=== PATIENT | male | born 1970 | race Caucasian/White ===

== ENCOUNTER 2025-05-25 12:57 | Emergency (ER) | payer BC, SELFPAY ==
[2025-05-25 13:00] VITALS: BP 154/115
[2025-05-25 13:46] VITALS: BP 153/100
[2025-05-25] MEDS: ADACEL 0.5 ML IM (13:55)
--- NOTE | 2025-05-25 13:55 | ED.GENMED ---
History of Present Illness
General
Chief Complaint: Head Injury
Source: patient
Time Seen by Provider: 05/25/25 13:44
History of Present Illness
History of Present Illness:
55-year-old male presents to the emergency room complaining of a head injury. Patient was doing some work when he hit his head on the air conditioning duct. He suffered a laceration to that area. No loss of conscious. Patient concerned because
he takes Eliquis. Currently he has pain in the area of his laceration but denies any diffuse headache. Denies any focal weakness numbness or tingling.
Past History
Past History
ED Past Medical History: Cancer (Left leg osteosarcoma), HTN and Seizures
ED Past Surgical History: Other
Social History
Tobacco: Former smoker
Alcohol: None
Drug: None
Living: with family
Phy Exam
Physical Exam
Physical Exam:
General: Awake, Alert, Oriented X3. No acute distress.
Vitals: unremarkable
Head: Flap laceration right parietal scalp. Minor oozing of blood. No significant hematoma. Total laceration length about 1.5 cm
Eyes: Pupils equal, EOMI
Throat: Airway intact, no exudates
Neck: Trachea midline
Neuro: Nonfocal
Skin: Warm, dry, no rash
Extremities: pulses equal b/l, no edema
Course
Orders/Labs/Results
Orders:
Orders
05/25/25 13:07
CT Head W/o Iv Contrast Urgent
Comment:
Reason For Exam: head injury on eliquis
05/25/25 13:53
Acetaminophen [Tylenol] 1,000 mg PO NOW STA
Tetanus/Diphth/Acelpertussis [Adacel] 0.5 ml IM .ONCE ONE
Vital Signs
Initial and Last Documented VS:
Initial Vital Signs
Temp Pulse Resp BP Pulse Ox
98.2 F 104 16 154/115 96
05/25/25 13:00 05/25/25 13:00 05/25/25 13:00 05/25/25 13:00 05/25/25 13:00
Last Documented Vital Signs
Temp Pulse Resp BP Pulse Ox
98.2 F 87 17 153/100 99
05/25/25 13:00 05/25/25 13:46 05/25/25 13:46 05/25/25 13:46 05/25/25 13:57
Procedures
Laceration Closure
Scalp:
Status of Wound: clean
Description of Wound Edges: sharp and flap-well vascularized
Preparation: cleaned with saline
Anesthesia: 1% Lidocaine with epi
Revision/Debridement: routine- no revision
Wound exploration: explored to base- no FB
Type of Closure: single layer closure
Skin Closure Material: skin marco
Number of sutures: 3
MDM/Problems Addressed
Differential Diagnosis Includes:
Scalp laceration, contusion, subdural
MDM/Problems Addressed:
Head CT shows no intracranial abnormality. Patient's wound closed with marco. They need to be removed about 1 week.
*Radiology
Radiology exam reviewed: radiology read reviewed
*Pulse Oximetry
SaO2: 99
Oxygen Mode of Delivery: Room air
Patient hypoxic: no
*Critical Care Note
Total Time (30-74mins, 75-104mins- exclusive of procedures): Not Applicable
ED Attending Note
-
Portions of this chart may have been created with voice recognition software.� Occasional wrong word or��sound alike� substitutions may have occurred due to the inherent limitations of voice recognition software.
Discharge Plan
Departure
Patient Disposition: Home (Routine Discharge)
Date of Disposition: 05/25/25
Time of Disposition: 15:02
Patient with high blood pressure during this ER visit?: Yes
Condition: Good
Discharge Problem:
Head injury, Laceration of scalp
Instructions: Laceration Repair With Gila (DC), Minor Head Injury (DC)
Prescriptions:
No Action
multivitamin Tablet
1 tab PO DAILY
lisinopril 10 mg tablet
10 mg PO DAILY
divalproex 500 mg tablet extended release 24 hr
1,000 mg PO Q12H
cholecalciferol (vitamin D3) [Vitamin D3] 25 mcg (1,000 unit) Tablet
50 mcg PO DAILY
Balance Of Nature
3 tab PO BID
Metamucil
2 tbsp PO HS
Eliquis 5 mg Tablet
10 mg PO BID 30 Days Qty: 82 0RF
Rx Instructions:
10 mg (2tabs) twice a day for 7 days then 5 mg (1tab) twice a day from then on
oxycodone-acetaminophen [Percocet] 5-325 mg Tablet
1 tab PO Q6HPRN PRN (Reason: pain) Qty: 14 0RF
Referrals:
Ravin Chaidez DO [Family Provider, Family Practice]
Activity Restrictions/Additional Instructions:
Gila should be removed in 1 week
Interventions
Interventions:
*Risk Screen - Suicide Last Done: 05/25/25 13:29
*General Assessment Last Done: 05/25/25 13:29
*Neglect/Abuse Screening Last Done: 05/25/25 13:29
*ED COVID-19 Vaccine History Last Done: 05/25/25 13:29
ED- Neurological Assessment Last Done: 05/25/25 13:29
ED-Skin Assessment Last Done: 05/25/25 13:29
Discharge Date and Time
Print Language: KHMER
[2025-05-25] MEDS: TYLENOL 1000 MG PO (13:56)
== END 2025-05-25 15:24 | disposition home or self-care (01) ==
LOC: EMR 12:57
PROVIDERS: EMERGENCY PHYSICIAN Emergency Medicine; FAMILY PHYSICIAN Family Medicine
DX: S01.01XA Laceration without foreign body of scalp, initial encounter (principal); W22.8XXA Striking against or struck by other objects, initial encounter; Y93.89 Activity, other specified; Z79.01 Long term (current) use of anticoagulants
CPT/HCPCS: 99284; 12001; 90471; 70450; 90715

== ENCOUNTER 2025-06-01 15:18 | Emergency (ER) | payer BC, SELFPAY ==
[2025-06-01 15:19] VITALS: BP 146/97
--- NOTE | 2025-06-01 15:51 | ED.GENMED ---
History of Present Illness
General
Chief Complaint: Wound Check/Suture Removal
Source: patient and records
Exam Limitations: none
Time Seen by Provider: 06/01/25 15:45
History of Present Illness
History of Present Illness:
55yo male presenting to the emergency department for staple removal. Patient had 3 marco placed 1 week ago in the ED after hitting his head on an air conditioner. Wound is healing well and he denies any complaints. Tetanus shot was updated at
his last ED visit.
Past History
Past History
ED Past Medical History: Cancer (Left leg osteosarcoma), HTN and Seizures
ED Past Surgical History: Other
Social History
Tobacco: Former smoker
Alcohol: None
Drug: None
Living: with family
Phy Exam
General Physical Exam
General Presentation: well appearing and no apparent distress
General Skin: warm and dry
General Habitus: normal
General Mental: alert
ENT Exam
ENT Exam: other (3 intact marco noted to R parietal scalp with scabbing. No signs of infection.)
Neurological Exam
Neurological Exam: alert
[place] Coma Scale
Eye Opening: Spontaneous
Verbal Response: Oriented
Motor Response: Obeys Commands
GCS Total Score: 15
Skin Exam
Skin Exam: normal color and warm/dry
Psychiatric Exam
Psychiatric Exam: normal mood/affect
Course
Vital Signs
Initial and Last Documented VS:
Initial Vital Signs
Temp Pulse Resp BP Pulse Ox
98.9 F 78 18 146/97 100
06/01/25 15:19 06/01/25 15:19 06/01/25 15:19 06/01/25 15:19 06/01/25 15:19
Last Documented Vital Signs
Temp Pulse Resp BP Pulse Ox
98.9 F 78 18 146/97 100
06/01/25 15:19 06/01/25 15:19 06/01/25 15:19 06/01/25 15:19 06/01/25 15:52
MDM/Problems Addressed
Differential Diagnosis Includes:
55yoM here for staple removal. Intact marco noted on exam. Wound is well healed without signs of infection. Three marco removed without difficulty. No bleeding after removal and patient tolerated well. Patient discharged.
*Pulse Oximetry
SaO2: 100
Oxygen Mode of Delivery: Room air
Patient hypoxic: no (100%)
*Critical Care Note
Total Time (30-74mins, 75-104mins- exclusive of procedures): Not Applicable
ED Attending Note
-
Portions of this chart may have been created with voice recognition software.� Occasional wrong word or��sound alike� substitutions may have occurred due to the inherent limitations of voice recognition software.
Discharge Plan
Departure
Patient Disposition: Home (Routine Discharge)
Date of Disposition: 06/01/25
Time of Disposition: 15:50
Patient with high blood pressure during this ER visit?: Yes
Discharge Problem:
Encounter for removal of marco
Instructions: Removing marco
Prescriptions:
No Action
multivitamin Tablet
1 tab PO DAILY
lisinopril 10 mg tablet
10 mg PO DAILY
divalproex 500 mg tablet extended release 24 hr
1,000 mg PO Q12H
cholecalciferol (vitamin D3) [Vitamin D3] 25 mcg (1,000 unit) Tablet
50 mcg PO DAILY
Balance Of Nature
3 tab PO BID
Metamucil
2 tbsp PO HS
Eliquis 5 mg Tablet
10 mg PO BID 30 Days Qty: 82 0RF
Rx Instructions:
10 mg (2tabs) twice a day for 7 days then 5 mg (1tab) twice a day from then on
oxycodone-acetaminophen [Percocet] 5-325 mg Tablet
1 tab PO Q6HPRN PRN (Reason: pain) Qty: 14 0RF
Activity Restrictions/Additional Instructions:
Return to the ER with any uncontrolled bleeding or signs of infection.
Interventions
Interventions:
*Risk Screen - Suicide Last Done: 06/01/25 15:19
*General Assessment Last Done: 06/01/25 15:19
*Neglect/Abuse Screening Last Done: 06/01/25 15:19
*ED- Fall Risk Assessment Last Done: 06/01/25 15:19
*ED COVID-19 Vaccine History Last Done: 06/01/25 15:19
Discharge Date and Time
Print Language: [id number]
== END 2025-06-01 16:00 | disposition home or self-care (01) ==
LOC: EMR 15:18
PROVIDERS: EMERGENCY PHYSICIAN Emergency Medicine; FAMILY PHYSICIAN Family Medicine
DX: Z48.02 Encounter for removal of sutures (principal); G40.909 Epilepsy, unspecified, not intractable, without status epilepticus; I10 Essential (primary) hypertension; Z87.891 Personal history of nicotine dependence
CPT/HCPCS: 99281